=== PATIENT | male | born 1985 | race Hispanic/Latino ===

== ENCOUNTER 2018-04-13 10:58 | Emergency (ER) | payer OTHER ==
[~2018-04-13] VITALS: Ht 170.2 cm; Wt 109.3 kg
--- OUTSIDE RECORDS SUMMARY | 2018-04-13 11:01 | XMS REPORT | Clinical Summary ---
Author Author [facility] Address Unknown Phone Unavailable Care Team Providers Care Business Account Leader Name Role Phone PCP Unavailable Allergies No Known Allergies Current Medications Prescription Sig. Disp. Refills Start End Date Status Date albuterol HFA (VENTOLIN 2 puffs. 01/29/20 Active HFA) 90 mcg/actuation 16 inhaler losartan (COZAAR) 100 MG 100 mg. 01/29/20 Active tablet 16 Active Problems Not on file Family History Medical History Relation Name Comments Diabetes Father Diabetes Mother Relation Name Status Comments Father Mother Social History Tobacco Use Types Packs/Day Years Used Date Light Tobacco Smoker Cigarettes 0.25 10 Smokeless Tobacco: Never Used Alcohol Use Drinks/Week oz/Week Comments Yes occassionally Sex Assigned at Date Recorded Not on file Last Filed Vital Signs Not on file Plan of Treatment Not on file Results Not on fileafter 04/12/2017
[2018-04-13] MEDS ORDERED: ALBUTEROL/IPRATROPIUM 3 ML NEB NEB ONE (11:30)
[2018-04-13] MEDS ORDERED: EPINEPHRINE HCL INJ 1 MG/ML AMP SQ ONE (12:00)
[2018-04-13] MEDS ORDERED: PREDNISONE 20 MG TAB PO ONE (12:00)
--- NOTE | 2018-04-13 12:04 | Diagnostic Imaging Report ---
EXAMINATION: CXR 2 VIEW - HOPD INDICATION: Fever, chills, cough, congestion COMPARISON: None FINDINGS: PA and lateral views TUBES and LINES: None. LUNGS: Lungs are well inflated. There is no evidence of pneumonia or pulmonary edema. PLEURA: No pleural effusion or pneumothorax. HEART AND MEDIASTINUM: The cardiomediastinal silhouette is unremarkable. BONES AND SOFT TISSUES: No focal osseous lesions. Soft tissues are unremarkable. UPPER ABDOMEN: No free air under the diaphragm. IMPRESSION: No acute thoracic abnormality. Signed by: Dr. Dre Kevin MD on 04/13/2018 12:00 PM
== END 2018-04-13 12:29 | disposition home or self-care (01) ==
LOC: FSED 10:58
DX: R05 Cough (principal); L50.1 Idiopathic urticaria; J20.9 Acute bronchitis, unspecified; I10 Essential (primary) hypertension
CPT/HCPCS: 71046; 94760; 99284; J0171; J7512